=== PATIENT | male | born 1995 | race Caucasian/White ===

== ENCOUNTER 2020-06-05 20:50 | Emergency (ER) | payer BC, MEDICAID ==
[~2020-06-05] VITALS: Ht 172.7 cm; Wt 88.5 kg
[2020-06-05 21:35] VITALS: BP 137/86
--- NOTE | 2020-06-05 21:40 | NUR ---
PT AMBULATED TO LOBBY WITH STEADY GAIT.
--- NOTE | 2020-06-05 23:40 | NUR ---
PT 24 Y/O MALE BIB SELF FOR C/O 9/10 NECK PAIN RADIATING TO BACK. PT STATES HE WAS PLAYING BASEBALL AND "OVER REACHED." PT STATES THAT OTC PAIN MEDICATIONS ARE INEFFECTIVE. PT RESPIRATIONS ARE EVEN AND UNLABORED. SKIN IS WARM AND DRY TO TOUCH. PT CMS INTACT. CAP REFILL <3. CLAVICLE SYMMETRICAL. VSS. MEDHX: NONE ALLERGIES: NKA.
--- NOTE | 2020-06-05 23:40 | NUR ---
PT AMBULATED TO [facility] WITH STEADY GAIT.
--- NOTE | 2020-06-05 23:44 | NUR ---
ERMD AT BEDSIDE.
[2020-06-05 23:55] VITALS: BP 132/95
--- NOTE | 2020-06-05 23:55 | NUR ---
Patient discharged with v/s stable. Written and verbal after care instructions given and explained. Patient alert, oriented and verbalized understanding of instructions. Ambulatory with steady gait. All questions addressed prior to discharge. ID band removed. Patient advised to follow up with PMD. Rx of NAPROSYN, FLEXERIL given. Patient educated on indication of medication including possible reaction and side effects. Opportunity to ask questions provided and answered.
== END 2020-06-05 23:55 | disposition home or self-care (01) ==
LOC: MED 20:50
DX: S16.1XXA Strain of muscle, fascia and tendon at neck level, initial encounter (principal); W22.8XXA Striking against or struck by other objects, initial encounter; Y93.89 Activity, other specified; Y92.89 Other specified places as the place of occurrence of the external cause; Y99.8 Other external cause status
CPT/HCPCS: 99283